=== PATIENT | male | born 1965 | race Caucasian/White ===

== ENCOUNTER 2016-12-31 11:13 | Emergency (ER) | payer MEDICAID ==
--- NOTE | 2016-12-31 12:07 | Emergency Department Record ---
History of Present Illness - General Chief Complaint: Crisis Evaluation Stated Complaint: mental breakdown Time Seen by Provider: 12/31/16 12:07 Mode of Arrival: Ambulatory - History of Present Illness Onset/Timin -: Days(s) Associated Psychiatric Symptoms: Depression, Suicidal ideation History of same: Yes Quality: Constant Associated Symptoms: Denies other symptoms Treatments Prior to Arrival: None If Self Harm: Admits thoughts of self harm - [place] Coma Scale Eye Response: (4) Open spontaneously Motor Response: (6) Obeys commands Verbal Response: (5) Oriented [place] Total: 15 - Related Data Allergies Allergy/AdvReac Type Severity Reaction Status Date / Time naproxen Allergy Severe RENAL Verified 12/31/16 11:17 FAILURE varenicline tartrate AdvReac Mild NIGHTMARES Verified 12/31/16 11:17 [From Chantix] Past Medical History - SOCIAL HISTORY Smoking Status: Current every day smoker Alcohol Use: Occasional - RESPIRATORY Hx Respiratory Disorders: No - CARDIOVASCULAR Hx Cardio Disorders: Yes Hx Hypertension: Yes (CONTROLLED) - NEURO Hx Neuro Disorders: No - GI Hx GI Disorders: No Hx Hepatitis/Jaundice: Yes ( A CHILD STATES CURABLE WITH A SHOT) Hx Wt Loss/Wt Gain: Yes (LOST ABOUT 15 LBS WITH DIET) - Hx Genitourinary Disorders: No - ENDOCRINE Hx Endocrine Disorders: No - MUSCULOSKELETAL Hx Musculoskeletal Disorders: Yes Hx Arthritis: Yes (ANKLE) - PSYCH Hx Psych Problems: No - HEMATOLOGY/ONCOLOGY Hx Hematology/Oncology Disorders: Yes Hx Anemia: Yes () Hx Blood Transfusions: Yes (AT [age] YR OLD) Family Medical History Any Significant Family History?: Yes Course Vital Signs 12/31/16 11:19 Temperature 98.4 F Pulse Rate 85 Respiratory 16 Rate Blood Pressure 150/93 Pulse Ox 98 patient not in the room when I went in to talk to him and staff didn't see him leave Disposition Forms: Patient Portal Access Quality - Blood Pressure Screening Does Patient Have Any of the Following: No Blood Pressure Classification: Hypertensive Reading Systolic Measurement: 150 Diastolic Measurement: 93
== END 2016-12-31 13:10 | disposition left against medical advice (07) ==
LOC: ER 11:13
DX: Z53.20 Procedure and treatment not carried out because of patient's decision for unspecified reasons (principal)

== ENCOUNTER 2017-01-02 18:18 | Emergency (ER) | payer MEDICAID ==
--- NOTE | 2017-01-02 18:38 | Emergency Department Record ---
Anxiety - General Chief Complaint: Anxiety Stated Complaint: DEPRESSION AND ANXIETY Time Seen by Provider: 01/02/17 18:24 Source: Patient Mode of Arrival: Ambulatory Limitations: No limitations - History of Present Illness Initial Comments: The patient is here due to feeling anxious and depressed for 2-3 weeks. He has had a recent fight with his girlfriend that is causing him to be depressed. He denies any suicidal or homicidal ideation but has had sharp stabbing CP intermittently for 2 weeks. The pains last seconds and are not associated with SOB, JR, sweating, or nausea. He has felt palpitations off and on for the 2 weeks. Both the sharp pains and palpitations seem to worsen when he gets emotional. He has no cardiac hx and no hx of CP with exertion. MD Complaint: Anxiety Onset/Timin -: Week(s) Symptoms: Chest pain Previous History of Same: No Severity: Severe Quality: Intermittant Provoking factors: Emotional stress Improves With: Nothing Worsens With: Nothing Associated symptoms: Chest pain, Other - Related Data Allergies/Adverse Reactions: Allergies Allergy/AdvReac Type Severity Reaction Status Date / Time naproxen Allergy Severe RENAL Verified 01/02/17 18:32 FAILURE varenicline tartrate AdvReac Mild NIGHTMARES Verified 01/02/17 18:32 [From Chantix] Travel Screening - Travel/Exposure Within Last 30 Days Have you traveled within the last 30 days?: No Review of Systems Constitutional: Denies: Chills, Fever Eyes: Denies: Eye discharge ENT: Denies: Congestion Respiratory: Denies: Cough, Dyspnea Past Medical History - SOCIAL HISTORY Smoking Status: Current every day smoker Alcohol Use: Heavy Drug Use: None - RESPIRATORY Hx Respiratory Disorders: No - CARDIOVASCULAR Hx Cardio Disorders: Yes Hx Hypertension: Yes (CONTROLLED) - NEURO Hx Neuro Disorders: No - GI Hx GI Disorders: No Hx Hepatitis/Jaundice: Yes Hx Wt Loss/Wt Gain: Yes - Hx Genitourinary Disorders: No - ENDOCRINE Hx Endocrine Disorders: No - MUSCULOSKELETAL Hx Musculoskeletal Disorders: Yes Hx Arthritis: Yes (ANKLE) - PSYCH Hx Psych Problems: No - HEMATOLOGY/ONCOLOGY Hx Hematology/Oncology Disorders: Yes Hx Anemia: Yes () Hx Blood Transfusions: Yes (AT [age] YR OLD) Family Medical History Any Significant Family History?: Yes Hx Cancer: Mother Physical Exam - General General Appearance: Alert, Oriented x3, Cooperative, No acute distress - Head Head exam: Atraumatic, Normocephalic, Normal inspection - Eye Eye exam: Normal appearance, PERRL - ENT Throat exam: Normal inspection. negative: Tonsillar erythema, Tonsillar exudate - Neck Neck exam: Normal inspection, Full ROM. negative: Tenderness - Respiratory Respiratory exam: Normal lung sounds bilaterally, Chest wall tenderness (The chest pain is 100% reproducible to palpation over the anterior chest wall.). negative: Respiratory distress - Cardiovascular Cardiovascular Exam: Regular rate, Normal rhythm, Normal heart sounds - GI/Abdominal GI/Abdominal exam: Soft, Normal bowel sounds. negative: Tenderness - Extremities Extremities exam: Normal inspection, Full ROM, Normal capillary refill. negative: Tenderness - Neurological Neurological exam: Alert. negative: Motor sensory deficit - Psychiatric Psychiatric exam: Anxious, Depressed, Normal affect, Normal mood. negative: Flat affect, Homicidal ideation, Suicidal ideation Course Vital Signs 01/02/17 18:24 Temperature 97.8 F Pulse Rate 83 Respiratory 16 Rate Blood Pressure 156/85 Pulse Ox 98 - Reevaluation(s) Reevaluation #1: The patient is doing well at this time. He is resting comfortably with no pain or discomfort. The patient is clearly not suicidal at this time and feels he will be safe at home. I did offer him 2 Ativan pills for home and a referral to [facility] but he is reluctant to go there. He does have an appointment with his PCP in 4 days and will discuss the recent events with her. 01/02/17 19:36 Medical Decision Making - Data Complexity MDM Data: Labs Ordered and/or Reviewed, X-Ray Ordered and/or Reviewed, EKG Ordered and/or Reviewed - Lab Data Result diagrams: 01/02/17 18:50 01/02/17 18:50 - EKG Data -: EKG Interpreted by Me EKG: No Acute Changes, Normal EKG - Radiology Data Radiology results: Report reviewed (CXR: COPD O/W neg.) Disposition Disposition: Discharge Clinical Impression: Anxiety Disposition: Home, Self-Care Condition: (1) Good Instructions: Social Anxiety Disorder (ED) Additional Instructions: Please take the Ativan as directed and decrease your alcohol intake. Please proceed to [facility] for further evaluation of your anxiety. Please see your PCP in 4 days as planned to discuss possibly starting on a depression medicine. Referrals: Crisis and Referral Access Hotline, at [facility] [Other] [facility], [facility] [Other] Forms: Patient Portal Access Time of Disposition: 19:39 Quality - Quality Measures Quality Measures: N/A - Blood Pressure Screening View Details: Yes Does Patient Have Any of the Following: No Blood Pressure Classification: Pre-Hypertensive BP Reading Systolic Measurement: 156 Diastolic Measurement: 85 Screening for High Blood Pressure: < Pre-Hypertensive BP, F/U Documented > [ [id number]] Pre-Hypertensive Follow-up Interventions: Referral to alternative/primary care provider.
[2017-01-02 19:07] LABS: BASO % 0.3 % (0-6); EOS % 0.5 % (0-6); HEMATOCRIT 46.9 % (42.0-52.0); HEMOGLOBIN 16.1 gm/dl (14.0-18.0); LYMPH % 28.6 % (16-45); MEAN CELL VOLUME 92.9 fl (81-97); MEAN CORPUSCULAR HEMOGLOBIN 31.9 pg (27-33); MEAN CORPUSCULAR HGB CONC 34.3 g/dl (32-36); MEAN PLATELET VOLUME 9.4 fl (7.4-10.4); MONO % 5.6 % (0-9); PLATELET COUNT 237 K/uL (130-400); RED BLOOD COUNT 5.05 M/uL (4.40-5.70); WHITE BLOOD COUNT W/O DIFF 9.8 K/uL (4.2-12.2)
[2017-01-02 19:17] LABS: ALB/GLOB RATIO 1.5 (1.1-1.8); ALBUMIN 4.5 g/dL (4.0-5.0); ALKALINE PHOSPHATASE 84 U/L (40-129); ALT/SGPT 11 U/L (<41); AST/SGOT 17 U/L (10.0-50.0); BLOOD UREA NITROGEN 7 mg/dL (6-20); CKMB 1.5 ng/mL (<6.73); CREATINE PHOSPHOKINASE 113 U/L (39-308); CREATININE 0.8 mg/dL (0.7-1.2); EST GLOMERULAR FILTRATION RATE > 60 mL/min; GLUCOSE,RANDOM 85 mg/dL (74-109); TOTAL PROTEIN 7.5 g/dL (6.6-8.7)
[2017-01-02 19:20] LABS: SALICYLATE < 0.3 mg/dL (2.8-20)
[2017-01-02 19:27] LABS: TROPONIN I < 0.30 ng/mL (0.00-0.300)
[2017-01-02] MEDS ORDERED: LORAZEPAM 0.5 MG TABLET PO ONE (19:39)
--- NOTE | 2017-01-03 13:54 | RADIOLOGY REPORT ---
DATE: 01/02/2017 at 1914. EXAM: CHEST, TWO VIEWS HISTORY: Chest pain. Anxiety. TECHNIQUE: Upright PA and lateral views of the chest. COMPARISON: None. FINDINGS: The heart is normal in size, and the pulmonary vasculature is nondilated. The lungs appear mildly hyperinflated consistent with chronic obstructive pulmonary disease. No confluent airspace opacity is seen, nor is there costophrenic angle blunting or pneumothorax. Mild degenerative endplate changes are scattered within the visualized spine. IMPRESSION: NO EVIDENCE OF ACUTE CARDIOPULMONARY DISEASE. THE LUNGS APPEAR MILDLY HYPERINFLATED CONSISTENT WITH CHRONIC OBSTRUCTIVE PULMONARY DISEASE. JOB NUMBER: [id number] MTDD
== END 2017-01-02 19:55 | disposition home or self-care (01) ==
LOC: ER 18:18
DX: F41.8 Other specified anxiety disorders (principal); F43.0 Acute stress reaction; R07.89 Other chest pain; I10 Essential (primary) hypertension; F17.210 Nicotine dependence, cigarettes, uncomplicated; Z79.899 Other long term (current) drug therapy
CPT/HCPCS: 99284 ×2; 82550; 85025; 82553; 84484; 80053; 71020; 93005; 93010; G0480 ×2; 80329